=== PATIENT | female | born 1955 | race Caucasian/White ===

== ENCOUNTER → 2016-12-01 19:54 | Outpatient (CLI) | payer OTHER ==
[2014-05-22 14:44] VITALS: BMI 24.6
[~2016-12-01 19:54] MED LIST: FISH OIL 1,0001 CA1 PO; LIPITOR20 MG PO; LYSINE1000 MG PO; MULTIPLE VITAMI1 TA1 PO; SYNTHROID50 MCG PO
== END | disposition home or self-care (01) ==
LOC: D.MAMMO 11-14 15:00
DX: Z12.31 Encounter for screening mammogram for malignant neoplasm of breast (principal)

== ENCOUNTER 2017-11-17 06:15 | Day surgery (SDC) | payer OTHER ==
[~2017-11-17] VITALS: Ht 154.9 cm; Wt 63.0 kg
--- NOTE | ~2017-11-17 | OP ---
PATIENT NAME: LORY UPTON MEDICAL RECORD: [id number] :59 LOCATION:D.OPS ADMISSION DATE: SURGEON: DAVID PRECIADO MD DATE OF OPERATION: 11/17/2017 PRINCIPAL DIAGNOSIS: Complex polyps of the cecum. Complex in nature as one polyp had to be clipped to control hemorrhage and this is in the thinnest part of the colon. POSTOPERATIVE DIAGNOSES: Complex polyps of the cecum. Complex in nature as one polyp had to be clipped to control hemorrhage and this is in the thinnest part of the colon with recurrent polyps times 2 in the cecum. PROCEDURES: 1. Total colonoscopy to cecum. 2. Cecal polypectomy times 2 utilizing the argon plasma extruder operator horizontal. SURGEON: David Preciado MD SAIL CUTTER: None. BLOOD LOSS: Minimal. ANESTHESIA: General. COMPLICATIONS: None. The risks, possible complications, and alternatives to the procedure were explained to the patient. She elects to proceed. OPERATIVE COURSE: The patient was conveyed to the operating room electively on 11/17/2017. General anesthesia was induced by the anesthesia staff. The patient was placed in the Alva position. A digital rectal examination was performed. A colonoscope was inserted through the anus. It was easily advanced to the cecum. The prep was adequate. One polyp was easily identified due to a nearby tattoo and a clip. At the base of the clip, there was a recurrent polypoid tissue. This was biopsied multiply and then any evidence of residual polypoid tissue was then ablated with the argon plasma extruder operator horizontal utilizing the right colon setting in the forced mode. A second area of polypoid tissue was noted a couple of centimeters away. It was best seen through narrow band imaging. This area was biopsied with the cold endoscopic biopsy forceps and then the surrounding tissue was then ablated with the argon plasma extruder operator horizontal utilizing the right colon setting in the forced mode. I slowly withdrew the endoscope. I irrigated and aspirated extensively. I dragged the folds. A combination of normal imaging and narrow band imaging were utilized. A retroflexed view was obtained in the rectum. I then unretroflexed the scope and removed it under direct vision. The patient was then extubated and conveyed to the post-anesthesia care unit where she was in stable condition. I will plan to perform another colonoscopy with the argon plasma extruder operator horizontal in one year. OPERATIVE REPORT [id number] LORY UPTON TRANSINT:[id number] Voice Confirmation ID: [id number] DOCUMENT ID: [id number] DAVID PRECIADO MD at 1157 CC: EVARISTO IGLESIAS and CORA GAMBOA [id number] DICTATION DATE: 11/17/17 1112 TEST TECHNICIAN: 11/17/17 1258 [facility] 11/17/17 [place] [id number] [place] [id number]
[2017-11-17 07:57] VITALS: BP 113/64; Ht 154.9 cm; Wt 63.0 kg
[2017-11-17 08:32] LABS: HEMATOCRIT 33.8 % (36.0-48.0); HEMOGLOBIN 11.4 g/dL (12-16); MCH 31.4 pg (26.0-34.0); MCHC 33.7 g/dL (31.0-37.0); MCV 93.1 fL (80.0-100.0); MEAN PLATELET VOLUME 9.9 fL (7.4-10.4); RBC 3.63 10x6/uL (4.00-5.40); RDW 12.8 % (11.5-14.5); WBC 4.3 10x3/uL (4.8-10.8)
== END 2017-11-17 13:30 | disposition home or self-care (01) ==
LOC: D.OPS 06:15 → D.PAN 08:30 → D.OPS 08:30 → D.PAN 08:45 → D.OPS 13:30
PROVIDERS: Anesthesiology
DX: D12.0 Benign neoplasm of cecum (principal); E03.9 Hypothyroidism, unspecified; Z01.812 Encounter for preprocedural laboratory examination

== ENCOUNTER → 2017-12-20 16:24 | Outpatient (CLI) | payer OTHER ==
[2017-11-17 07:57] VITALS: BMI 26.3
== END | disposition home or self-care (01) ==
LOC: D.MAMMO 12-01 10:30
DX: Z12.31 Encounter for screening mammogram for malignant neoplasm of breast (principal)

== ENCOUNTER 2018-11-20 05:52 | Day surgery (SDC) | payer OTHER ==
[~2018-11-20] VITALS: Ht 154.9 cm; Wt 59.5 kg
[2018-11-20 06:27] LABS: CALC OSMOLALITY 275 mosm/kg (275-300); CALCIUM 9.2 mg/dL (8.5-10.1); CARBON DIOXIDE 32.3 mmol/L (21.0-32.0); CHLORIDE - SERUM 101 mmol/L (98-107); CREATININE - SERUM 0.8 mg/dL (0.6-1.3); GLUCOSE 98 mg/dL (74-106); POTASSIUM - SERUM 3.7 mmol/L (3.5-5.1); SODIUM 139 mmol/L (136-145); UREA NITROGEN 8 mg/dL (7-18); eGFR NON AFRICAN AMERICAN 77 mL/min (90-120)
[2018-11-20 06:35] LABS: BASOPHILS 0.8 % (0-2); EOSINOPHILS 1.2 % (0-7); HEMATOCRIT 40.4 % (36.0-48.0); HEMOGLOBIN 13.7 g/dL (12-16); LYMPHOCYTES 49.5 % (15-50); MCH 32.2 pg (26.0-34.0); MCHC 33.9 g/dL (31.0-37.0); MCV 95.1 fL (80.0-100.0); MEAN PLATELET VOLUME 9.9 fL (7.4-10.4); MONOCYTES 8.7 % (2-11); NEUTROPHILS 39.8 % (40-80); PLATELET COUNT 226 10x3/uL (130-400); RBC 4.25 10x6/uL (4.00-5.40); RDW 14.1 % (11.5-14.5)
[2018-11-20] MEDS ORDERED: TUMERIC (06:59)
[2018-11-20] MEDS ORDERED: VITAMIN D31000 UNIT PO (07:00)
[2018-11-20 07:08] VITALS: BP 125/71; Ht 154.9 cm; Wt 59.5 kg
--- NOTE | 2018-11-20 10:31 | NUR ---
DAMON Bunn GAS ATE A FULL LIQ TRAY. IV REMOVED AND PRESSURE HELD
--- NOTE | 2018-11-21 18:51 | OP ---
PATIENT NAME: LORY UPTON MEDICAL RECORD: [id number] :59 LOCATION:D.OPS ADMISSION DATE: SURGEON: DAVID PRECIADO MD DATE OF OPERATION: 11/20/2018 PREOPERATIVE DIAGNOSIS: History of complex polyp of the cecum times 2. POSTOPERATIVE DIAGNOSES: History of complex polyp of the cecum times 2 with no evidence of regrowth of the polyps; however, there was a new polyp within the cecum, which was a 9 x 8 mm sessile polyp. PROCEDURES: 1. Total colonoscopy to cecum. 2. Hot biopsy forceps polypectomy times 1. SURGEON: David Preciado MD METAL FURNITURE ASSEMBLY SUPERVISOR: None. BLOOD LOSS: Minimal. ANESTHESIA: IV sedation. COMPLICATIONS: None. The risks, possible complications, and alternatives to the procedure were explained to the patient. She elects to proceed. ENDOSCOPIC COURSE: The patient was conveyed to the endoscopy suite electively on 11/20/2018. IV sedation was induced by the anesthesia staff. The patient was placed in the Alva position. A digital rectal examination was performed. A colonoscope was inserted through the anus. It was advanced with difficulty to the cecum. One cecal polyp was noted and this was removed in its entirety utilizing the hot biopsy forceps polypectomy technique. I slowly withdrew the endoscope. A combination of normal imaging and narrow band imaging were utilized. The pullback was greater than a 14-minute pullback. A retroflexed view was obtained in the rectum. I then unretroflexed the scope and removed it under direct vision. I will see the patient in my office in 3 weeks. It is very likely that at that time, I will turn the patient's endoscopic needs back over to Dr. Rivera. TRANSINT:[id number] Voice Confirmation ID: [id number] DOCUMENT ID: [id number] 11/21/2018 Edited for welt wheeler error, size of polyp, dmm. DAVID PRECIADO MD at 0060 CC: EVARISTO IGLESIAS and CORA RIVERA [id number] DICTATION DATE: 11/20/18 1003 PARTNER INTEGRATION PLANNER: 11/20/18 1206 [facility] 11/20/18 [facility] [address] [place] [phone]
--- NOTE | 2018-11-21 18:51 | HP ---
PATIENT: LORY UPTON MEDICAL RECORD: [id number] ACCOUNT: [id number] LOCATION:D.[facility] : 59 ADMISSION DATE: 11/20/18 PCP: EVARISTO IGLESIAS HISTORY AND PHYSICAL EXAMINATION HISTORY OF PRESENT ILLNESS: The patient has a history of 2 cecal polyps, one of which has been clipped in the past and tattooed. The patient is here for surveillance colonoscopy. PAST MEDICAL AND SURGICAL HISTORY: Hypercholesterolemia, hypothyroidism. SOCIAL HISTORY: Nonsmoker. ALLERGIES: No known drug allergies. HOME MEDICINES: Have been reviewed. PHYSICAL EXAMINATION: GENERAL: The patient does not appear acutely ill. She does not appear chronically ill. VITAL SIGNS: Reviewed. EARS: External ears appear normal. EYES: Extraocular movements are intact. NECK: Trachea is midline. CHEST: No intercostal retractions. PULMONARY: Nonlabored, no stridor. IMPRESSION: History of complex polyps of the cecum. PLAN: Colonoscopy, biopsies, possible polypectomy, possible endoscopic mucosal resection. TRANSINT:[id number] Voice Confirmation ID: [id number] DOCUMENT ID: [id number] DAVID PRECIADO MD at 1851 CC: [id number] DICTATION DATE: 11/20/18 0913 SEARCH ENGINE OPTIMIZATION STRATEGIST: 11/20/[address] [facility] 11/20/18 [place] [id number] [place] [address]
== END 2018-11-20 11:14 | disposition home or self-care (01) ==
LOC: D.OPS 05:52
PROVIDERS: Anesthesiology; ATTEND Surgery
DX: K63.5 Polyp of colon (principal); Z86.010 Personal history of colon polyps; E78.00 Pure hypercholesterolemia, unspecified; E03.9 Hypothyroidism, unspecified

== ENCOUNTER 2019-04-15 08:00 | Outpatient (CLI) | payer OTHER ==
[2018-11-20 07:08] VITALS: BMI 24.8
[~2019-04-15 08:00] MED LIST changes: +TUMERIC; +VITAMIN D31000 UNIT PO
== END 2019-04-15 23:59 | disposition home or self-care (01) ==
LOC: D.MAMMO 08:00
PROVIDERS: ATTEND Family Medicine
DX: Z12.31 Encounter for screening mammogram for malignant neoplasm of breast (principal)

== ENCOUNTER 2020-09-28 13:45 | Outpatient (CLI) | payer OTHER ==
[2018-11-20 07:08] VITALS: BMI 24.8
== END 2020-09-28 23:59 | disposition home or self-care (01) ==
LOC: D.MAMMO 13:45
PROVIDERS: ATTEND Family Medicine
DX: Z12.31 Encounter for screening mammogram for malignant neoplasm of breast (principal)